=== PATIENT | male | born 1970 | race Caucasian/White ===

== ENCOUNTER 2023-11-13 17:35 | Inpatient (IN) | payer OTHER ==
[2023-11-13 20:05] LABS: #Basophils 0.03 10x3/uL (0.0-0.2); %Basophils 0.5 % (0.0-1.0); %Eosinophils 0.9 % (0.0-10.0); %Lymphocytes 19.4 % (21.0-51.0); %Monocytes 12.1 % (0.0-10.0); %Neutrophils 66.9 % (42.0-75.0); Hematocrit 38.9 % (42.0-52.0); Hemoglobin 12.2 g/dL (14.0-18.0); Mean Corpuscular HGB CONC 31.4 g/dL (32.0-36.0); Mean Corpuscular Hemoglobin 25.4 pg (27.0-31.0); Mean Platelet Volume 10.7 fL (7.4-10.4); Platelet Count 267 10x3/uL (130-400); RBC Distribution Width 14.7 % (11.5-14.5)
[2023-11-13 20:18] LABS: ALT (SGPT) 16 U/L (8-55); AST (SGOT) 30 U/L (5-34); Albumin 2.1 g/dL (3.5-5.0); Alkaline Phosphatase 81 U/L (40-110); Anion Gap 11 mmol/L (10-20); BUN (Urea Nitrogen) 21 mg/dL (8.4-25.7); Bilirubin, Total 0.6 mg/dL (0.2-1.2); Calc. Creatinine Clearance 0 mL/min (70-130); Calcium 8.1 mg/dL (7.8-10.44); Carbon Dioxide 23 mmol/L (22-29); Chloride 108 mmol/L (98-107); Estimated GFR 91; Globulin 3.3 g/dL (2.4-3.5); Glucose 119 mg/dL (70-105); Lipase 20 U/L (8-78); Potassium 4.3 mmol/L (3.5-5.1); Protein, Total 5.4 g/dL (6.0-8.3); Sodium 138 mmol/L (136-145)
[2023-11-13 20:23] LABS: Troponin I 0.046 ng/mL (< 0.028)
[2023-11-13 21:38] LABS: Magnesium 1.9 mg/dL (1.6-2.6)
[2023-11-13] MEDS ORDERED: Furosemide 40 MG (4 mL) VIAL ONE (22:57)
[2023-11-14 00:23] LABS: Troponin I 0.059 ng/mL (< 0.028)
[2023-11-14] MEDS ORDERED: Ondansetron PF 4 MG/2 ML Vial IVP PRN (01:45)
[2023-11-14] MEDS ORDERED: Ondansetron ODT 4 MG TAB SL PRN (01:45)
[2023-11-14] MEDS ORDERED: Acetaminophen 325 MG TAB PO PRN (01:45)
[2023-11-14] MEDS ORDERED: Nitroglycerin 0.4 MG TAB (25 Tab Bottle) SL PRN (02:20)
[2023-11-14] MEDS ORDERED: Glucagon 1 MG/ML KIT IM PRN (02:33)
[2023-11-14] MEDS ORDERED: Dextrose 50% Abboject 50 ML SYRINGE SLOW IVP PRN (02:33)
[2023-11-14] MEDS ORDERED: HumaLOG 300 UNITS/3 ML VIAL SC PRN (02:33)
[2023-11-14] MEDS ORDERED: Dextrose 5% in Water 1,000 ML IV PRN (02:33)
[2023-11-14] MEDS ORDERED: Simethicone Chewable 80 MG TAB PO PRN (03:58)
[2023-11-14 04:16] VITALS: BMI 37.2
[2023-11-14] MEDS: Brimonidine Tartrate 0.2% Ophth Soln 5 ml Bottle EA EYE SCH (04:19)
[2023-11-14 05:11] LABS: #Basophils 0.03 10x3/uL (0.0-0.2); %Basophils 0.4 % (0.0-1.0); %Lymphocytes 11.8 % (21.0-51.0); %Monocytes 10.8 % (0.0-10.0); %Neutrophils 75.6 % (42.0-75.0); Hematocrit 39.2 % (42.0-52.0); Hemoglobin 12.2 g/dL (14.0-18.0); Mean Corpuscular HGB CONC 31.1 g/dL (32.0-36.0); Mean Corpuscular Hemoglobin 25.2 pg (27.0-31.0); Platelet Count 287 10x3/uL (130-400); RBC Distribution Width 14.7 % (11.5-14.5); Red Blood Cell (RBC) Count 4.84 mill/uL (4.70-6.10)
[2023-11-14 05:33] LABS: ALT (SGPT) 11 U/L (8-55); AST (SGOT) 26 U/L (5-34); Alkaline Phosphatase 81 U/L (40-110); Anion Gap 14 mmol/L (10-20); BUN (Urea Nitrogen) 21 mg/dL (8.4-25.7); Bilirubin, Total 0.8 mg/dL (0.2-1.2); Calc. Creatinine Clearance 124 mL/min (70-130); Calcium 8.6 mg/dL (7.8-10.44); Carbon Dioxide 25 mmol/L (22-29); Chloride 103 mmol/L (98-107); Estimated GFR 85; Glucose 201 mg/dL (70-105); Potassium 3.8 mmol/L (3.5-5.1); Sodium 138 mmol/L (136-145); Troponin I 0.051 ng/mL (< 0.028)
[2023-11-14] MEDS: Furosemide 40 MG (4 mL) VIAL SLOW IVP SCH ×2 (05:39→15:32)
[2023-11-14] MEDS ORDERED: Enoxaparin 40 MG (0.4 mL) SYRINGE SC SCH (09:00)
[2023-11-14] MEDS: Aspirin 81 mg Enteric Coated Tablet PO SCH (09:13)
[2023-11-14] MEDS: Spironolactone 25 MG TAB PO SCH (09:13)
[2023-11-14] MEDS: DULoxetine 30 MG CAP PO SCH (09:13)
[2023-11-14] MEDS: Empagliflozin 10 MG TAB PO SCH (09:13)
[2023-11-14] MEDS: Ketotifen 0.035% Ophth Soln 5 ml Bottle EA EYE SCH (09:13)
[2023-11-14] MEDS: Carvedilol 3.125 MG TAB PO SCH (09:13)
[2023-11-14] MEDS: Insulin NPH Human Isophane 100 UNITS/ML (10 ML VIAL) SQ SCH ×2 (10:24→21:39)
[2023-11-14] MEDS: Dorzolamide HCl 2% Ophth (10 mL) Bottle EA EYE SCH (10:26)
[2023-11-14] MEDS: HumaLOG 300 UNITS/3 ML VIAL SC PRN (13:06)
[2023-11-14] MEDS: Rivaroxaban 10 MG TAB PO SCH (18:03)
[2023-11-14] MEDS: Atorvastatin Calcium 40 MG TAB PO SCH (21:37)
[2023-11-15 06:05] LABS: #Basophils 0.03 10x3/uL (0.0-0.2); %Basophils 0.6 % (0.0-1.0); %Eosinophils 1.3 % (0.0-10.0); %Monocytes 16.5 % (0.0-10.0); %Neutrophils 53.4 % (42.0-75.0); Hematocrit 35.7 % (42.0-52.0); Mean Corpuscular HGB CONC 30.8 g/dL (32.0-36.0); Mean Corpuscular Hemoglobin 24.4 pg (27.0-31.0); Mean Corpuscular Volume 79.2 fL (78.0-98.0); Mean Platelet Volume 10.8 fL (7.4-10.4); Platelet Count 284 10x3/uL (130-400); RBC Distribution Width 14.7 % (11.5-14.5); Red Blood Cell (RBC) Count 4.51 mill/uL (4.70-6.10)
[2023-11-15 06:18] LABS: Hemoglobin A1c 8.5 % (4.0-6.0)
[2023-11-15 06:25] LABS: ALT (SGPT) 9 U/L (8-55); AST (SGOT) 20 U/L (5-34); Albumin 1.8 g/dL (3.5-5.0); Alkaline Phosphatase 72 U/L (40-110); Anion Gap 6 mmol/L (10-20); BUN (Urea Nitrogen) 22 mg/dL (8.4-25.7); Bilirubin, Total 0.4 mg/dL (0.2-1.2); Calc. Creatinine Clearance 114 mL/min (70-130); Calcium 8.2 mg/dL (7.8-10.44); Carbon Dioxide 30 mmol/L (22-29); Chloride 104 mmol/L (98-107); Estimated GFR 79; Globulin 3.6 g/dL (2.4-3.5); Glucose 97 mg/dL (70-105); Potassium 3.3 mmol/L (3.5-5.1); Protein, Total 5.4 g/dL (6.0-8.3)
[2023-11-15 06:42] LABS: Sodium 137 mmol/L (136-145)
[2023-11-15] MEDS: Potassium Chloride 20 MEQ TAB PO SCH (11:33)
[2023-11-15] MEDS: Carvedilol 3.125 MG TAB PO SCH (15:22)
[2023-11-15] MEDS: Losartan 25 MG TAB PO SCH (15:22)
[2023-11-16 05:49] LABS: #Basophils 0.03 10x3/uL (0.0-0.2); %Basophils 0.4 % (0.0-1.0); %Eosinophils 1.6 % (0.0-10.0); %Lymphocytes 21.3 % (21.0-51.0); %Neutrophils 64.6 % (42.0-75.0); Hematocrit 36.2 % (42.0-52.0); Hemoglobin 11.3 g/dL (14.0-18.0); Mean Corpuscular HGB CONC 31.2 g/dL (32.0-36.0); Mean Corpuscular Hemoglobin 25.1 pg (27.0-31.0); Mean Corpuscular Volume 80.4 fL (78.0-98.0); Mean Platelet Volume 10.9 fL (7.4-10.4); Platelet Count 297 10x3/uL (130-400); RBC Distribution Width 14.9 % (11.5-14.5)
[2023-11-16 06:02] LABS: ALT (SGPT) 11 U/L (8-55); AST (SGOT) 18 U/L (5-34); Albumin 1.8 g/dL (3.5-5.0); Alkaline Phosphatase 73 U/L (40-110); Anion Gap 10 mmol/L (10-20); BUN (Urea Nitrogen) 22 mg/dL (8.4-25.7); Bilirubin, Total 0.3 mg/dL (0.2-1.2); Calc. Creatinine Clearance 127 mL/min (70-130); Calcium 8.5 mg/dL (7.8-10.44); Carbon Dioxide 27 mmol/L (22-29); Chloride 105 mmol/L (98-107); Estimated GFR 88; Globulin 3.8 g/dL (2.4-3.5); Glucose 68 mg/dL (70-105); Potassium 3.6 mmol/L (3.5-5.1); Protein, Total 5.6 g/dL (6.0-8.3); Sodium 138 mmol/L (136-145)
[2023-11-16] MEDS ORDERED: Losartan 25 MG TAB PO SCH (09:00)
[2023-11-16] MEDS: Losartan 25 MG TAB PO SCH (09:20)
[2023-11-16] MEDS: Carvedilol 3.125 MG TAB PO SCH ×2 (09:20→16:04)
[2023-11-16] MEDS: Furosemide 20 MG (2 mL) VIAL SLOW IVP SCH (09:42)
[2023-11-17 04:44] LABS: #Basophils 0.04 10x3/uL (0.0-0.2); %Basophils 0.8 % (0.0-1.0); %Eosinophils 3.3 % (0.0-10.0); %Lymphocytes 31.7 % (21.0-51.0); %Monocytes 11.7 % (0.0-10.0); %Neutrophils 52.3 % (42.0-75.0); Hemoglobin 11.7 g/dL (14.0-18.0); Mean Corpuscular HGB CONC 30.8 g/dL (32.0-36.0); Mean Corpuscular Hemoglobin 24.4 pg (27.0-31.0); Mean Corpuscular Volume 79.3 fL (78.0-98.0); Mean Platelet Volume 10.6 fL (7.4-10.4); Platelet Count 317 10x3/uL (130-400); RBC Distribution Width 15.1 % (11.5-14.5); Red Blood Cell (RBC) Count 4.79 mill/uL (4.70-6.10)
[2023-11-17 05:10] LABS: ALT (SGPT) 10 U/L (8-55); AST (SGOT) 19 U/L (5-34); Albumin 1.9 g/dL (3.5-5.0); Alkaline Phosphatase 83 U/L (40-110); Anion Gap 15 mmol/L (10-20); BUN (Urea Nitrogen) 21 mg/dL (8.4-25.7); Bilirubin, Total 0.3 mg/dL (0.2-1.2); Calc. Creatinine Clearance 112 mL/min (70-130); Calcium 8.4 mg/dL (7.8-10.44); Carbon Dioxide 25 mmol/L (22-29); Chloride 107 mmol/L (98-107); Estimated GFR 76; Globulin 4.2 g/dL (2.4-3.5); Glucose 146 mg/dL (70-105); Potassium 4.2 mmol/L (3.5-5.1); Protein, Total 6.1 g/dL (6.0-8.3); Sodium 143 mmol/L (136-145)
[2023-11-17] MEDS ORDERED: Losartan 25 MG TAB PO SCH (21:00)
[2023-11-18] MEDS: Sacubitril 24MG/Valsartan 26 MG TAB PO SCH (00:13)
[2023-11-18 05:20] LABS: #Basophils 0.04 10x3/uL (0.0-0.2); %Basophils 0.6 % (0.0-1.0); %Eosinophils 1.9 % (0.0-10.0); %Lymphocytes 26.1 % (21.0-51.0); %Neutrophils 62.1 % (42.0-75.0); Hematocrit 38.1 % (42.0-52.0); Hemoglobin 11.7 g/dL (14.0-18.0); Mean Corpuscular HGB CONC 30.7 g/dL (32.0-36.0); Mean Corpuscular Hemoglobin 24.2 pg (27.0-31.0); Mean Corpuscular Volume 78.9 fL (78.0-98.0); Mean Platelet Volume 10.7 fL (7.4-10.4); Platelet Count 308 10x3/uL (130-400); RBC Distribution Width 14.9 % (11.5-14.5); Red Blood Cell (RBC) Count 4.83 mill/uL (4.70-6.10)
[2023-11-18 05:28] LABS: ALT (SGPT) 11 U/L (8-55); AST (SGOT) 16 U/L (5-34); Albumin 1.9 g/dL (3.5-5.0); Alkaline Phosphatase 79 U/L (40-110); Anion Gap 12 mmol/L (10-20); BUN (Urea Nitrogen) 21 mg/dL (8.4-25.7); Bilirubin, Total 0.4 mg/dL (0.2-1.2); Calc. Creatinine Clearance 125 mL/min (70-130); Calcium 8.3 mg/dL (7.8-10.44); Carbon Dioxide 23 mmol/L (22-29); Chloride 109 mmol/L (98-107); Estimated GFR 87; Globulin 4.1 g/dL (2.4-3.5); Glucose 118 mg/dL (70-105); Sodium 140 mmol/L (136-145)
[2023-11-18] MEDS ORDERED: Carvedilol 6.25 MG TAB PO SCH ×2 (08:00→19:00)
[2023-11-18 08:25] VITALS: TEMP 97.8
[2023-11-18] MEDS ORDERED: Regadenoson 0.4 MG/5 ML SYRINGE ONE (09:24)
[2023-11-18 11:42] VITALS: BP 163/89
[2023-11-18] MEDS ORDERED: Sacubitril 24MG/Valsartan 26 MG TAB PO SCH (21:00)
[2023-11-19] MEDS ORDERED: Carvedilol 6.25 MG TAB PO SCH (08:00)
[2023-11-19] MEDS ORDERED: Furosemide 20 MG TAB PO SCH (09:00)
== END 2023-11-18 18:12 | DRG 291 ==
LOC: ERS 17:35 → EEVIPCON 17:35 → 2SW 11-14 01:41 → OBSVTOIN 11-14 14:11
PROVIDERS: ADMIT Family Medicine; ATTEND Family Medicine
DX: I11.0 Hypertensive heart disease with heart failure (principal); I50.23 Acute on chronic systolic (congestive) heart failure; E78.5 Hyperlipidemia, unspecified; E11.9 Type 2 diabetes mellitus without complications; I25.10 Atherosclerotic heart disease of native coronary artery without angina pectoris; D64.9 Anemia, unspecified; I48.91 Unspecified atrial fibrillation; R07.89 Other chest pain; G47.33 Obstructive sleep apnea (adult) (pediatric); Z95.1 Presence of aortocoronary bypass graft; Z86.73 Personal history of transient ischemic attack (TIA), and cerebral infarction without residual deficits; Z88.8 Allergy status to other drugs, medicaments and biological substances; Z88.0 Allergy status to penicillin; Z87.891 Personal history of nicotine dependence; Z79.01 Long term (current) use of anticoagulants; I25.2 Old myocardial infarction
CPT/HCPCS: 36415; 36416; 71045; 78452; 80053; 83036; 83690; 83735; 83880; 84484; 85025; 93005; 93010; 93017; 93306; 96374; A9502; J1815; J1940; J2785